=== PATIENT | male | born 1995 | race Caucasian/White ===

== ENCOUNTER 2023-08-04 21:49 | Emergency (ER) | payer OTHER ==
[~2023-08-04] VITALS: Ht 170.2 cm; Wt 63.6 kg
[2023-08-05 00:46] VITALS: BP 145/72; PULSE 78; TEMP 97.9
== END 2023-08-05 00:46 | disposition home or self-care (01) ==
LOC: COL.ER 21:49
DX: M25.521 Pain in right elbow (principal); M25.531 Pain in right wrist; M54.50 Low back pain, unspecified; M54.6 Pain in thoracic spine; M25.552 Pain in left hip; M53.3 Sacrococcygeal disorders, not elsewhere classified; Z91.040 Latex allergy status; W00.0XXA Fall on same level due to ice and snow, initial encounter; X50.0XXA Overexertion from strenuous movement or load, initial encounter; Y93.01 Activity, walking, marching and hiking